=== PATIENT | female | born 1970 | race Caucasian/White ===

== ENCOUNTER 2018-08-27 04:08 | Inpatient (IN) ==
--- NOTE | 2018-08-22 17:53 | EKG Report ---
Test Performed on : 08/22/2018 5:41:44 PM Test Reason : PAT Blood Pressure : / mmHG Vent. Rate : 112 BPM Atrial Rate : 112 BPM P-R Int : 144 ms QRS Dur : 094 ms QT Int : 316 ms P-R-T Axes : 061 009 050 degrees QTc Int : 431 ms Sinus tachycardia. Low voltage QRS Possible Inferior infarct , age undetermined Abnormal ECG No previous ECGs available Confirmed by Deonte PANDYA, Tk ([id number]) on 08/23/2018 8:46:49 AM
[2018-08-22 18:08] LABS: BASO# 0.06 X1000 (0.0-0.2); BASO% 0.6 % (0.0-0.8); EOS# 0.49 X1000 (0.0-0.7); EOS% 5.2 % (0.0-10.0); HEMATOCRIT 32.8 % (37.0-47.0); HEMOGLOBIN 9.8 g/dL (12.0-16.0); IMM GRAN# 0.02 X1000 (0.0-0.04); IMM GRAN% 0.2 % (0.0-0.5); LYMPH% 30.7 % (20.5-51.1); MCH 25.1 PG (27-31); MCHC 29.9 g/dL (33-37); MCV 84.1 FL (81-99); MONO% 9.5 % (1.7-9.3); NEUT# 5.07 X1000 (1.4-6.5); NEUT% 53.8 % (42.2-75.2); PLT 290 X1000 (130-400); RDW 16.6 % (11.5-14.5); WBC 9.44 X1000 (4.8-10.8)
[2018-08-22 18:11] LABS: INR 0.96; PROTIME 13.6 Seconds (11.0-16.0)
[2018-08-22 18:12] LABS: PTT 30.1 Seconds (22.3-41.8)
[2018-08-22 18:42] LABS: CALCIUM 9.5 mg/dL (8.8-10.2)
[2018-08-22 22:02] LABS: URINE SOURCE CLEAN CATCH
[2018-08-22 23:04] LABS: HEMOGLOBIN A1C 5.7 % (4.8-6.0)
[2018-08-22 23:34] LABS: BILIRUBIN URINE NEGATIVE (NEGATIVE); BLOOD URINE TRACE (NEGATIVE); COLOR YELLOW; GLUCOSE URINE NEGATIVE (NEGATIVE); KETONE URINE NEGATIVE (NEGATIVE); LEUKOCYTES URINE SMALL (NEGATIVE); NITRITE URINE NEGATIVE (NEGATIVE); PROTEIN URINE 30 mg/dL (NEGATIVE); SP GRAVITY URINE 1.029; TURBIDITY URINE HAZY (CLEAR); UROBILINOGEN URINE 2 mg/dL (NORMAL)
[2018-08-22 23:35] LABS: UR EPITHELIAL CELLS >10 /HPF (<10); URINE BACTERIA 2+ /HPF
[2018-08-27] MEDS ORDERED: COLACE ONE (05:59)
[2018-08-27] MEDS ORDERED: PEPCID ONE (05:59)
[2018-08-27] MEDS ORDERED: REGLAN ONE (05:59)
[2018-08-27] MEDS ORDERED: LYRICA ONE (06:00)
[2018-08-27] MEDS ORDERED: LR 1,000 ML ONE (06:00)
[2018-08-27] MEDS ORDERED: CELEBREX ONE (06:00)
[2018-08-27] MEDS ORDERED: KEFZOL 2 GM/D5W 2 GM/50 ML IVPB ONE (06:14)
[2018-08-27] MEDS ORDERED: DIPRIVAN 1% ONE (07:00)
[2018-08-27] MEDS ORDERED: XYLOCAINE-MPF 2% ONE (07:01)
[2018-08-27] MEDS ORDERED: SODIUM CHLORIDE 0.9% ONE (07:03)
[2018-08-27] MEDS ORDERED: DURAMORPH ONE (07:03)
[2018-08-27] MEDS ORDERED: QUELICIN (DOSE) ONE (07:03)
[2018-08-27] MEDS ORDERED: NORCURON ONE (07:03)
[2018-08-27] MEDS ORDERED: SODIUM CHLORIDE 0.9% 10 ML ONE ×2 (07:03→09:24)
[2018-08-27] MEDS ORDERED: CYKLOKAPRON 1,000 MG/NS 1,000 MG/100 ML IVPB ONE (07:03)
[2018-08-27] MEDS ORDERED: TORADOL ONE ×3 (07:03→10:37)
[2018-08-27] MEDS ORDERED: MARCAINE 0.25% PF ONE (07:03)
[2018-08-27] MEDS ORDERED: EXPAREL 1.3% ONE (07:04)
[2018-08-27] MEDS ORDERED: NEOSPORIN G.U. IRRIGANT ONE (07:04)
[2018-08-27] MEDS ORDERED: ZOFRAN ONE (07:27)
[2018-08-27] MEDS ORDERED: DECADRON ONE (07:27)
[2018-08-27] MEDS ORDERED: FENTANYL ONE (07:28)
[2018-08-27] MEDS ORDERED: OFIRMEV 1000 MG/ISOTONIC SOLN 1,000 MG/100 ML BOTTLE ONE (07:37)
[2018-08-27] MEDS ORDERED: ROBINUL ONE (09:15)
[2018-08-27] MEDS ORDERED: NEOSTIGMINE ONE (09:15)
[2018-08-27] MEDS ORDERED: NEO-SYNEPHRINE ONE (09:24)
[2018-08-27 09:52] LABS: URINE SOURCE CATH
[2018-08-27 09:58] LABS: BILIRUBIN URINE NEGATIVE (NEGATIVE); BLOOD URINE NEGATIVE (NEGATIVE); COLOR YELLOW; GLUCOSE URINE NEGATIVE (NEGATIVE); KETONE URINE NEGATIVE (NEGATIVE); LEUKOCYTES URINE NEGATIVE (NEGATIVE); NITRITE URINE NEGATIVE (NEGATIVE); PH URINE 5.5; PROTEIN URINE NEGATIVE (NEGATIVE); SP GRAVITY URINE 1.001; TURBIDITY URINE CLEAR (CLEAR); UR EPITHELIAL CELLS <10 /HPF (<10); URINE BACTERIA NEGATIVE /HPF; URINE RBC <10 /HPF (<10); URINE WBC <10 /HPF (<10); UROBILINOGEN URINE NORMAL (NORMAL)
[2018-08-27] MEDS ORDERED: NS 1,000 ML ONE (10:11)
--- NOTE | 2018-08-27 10:24 | OPERATIVE NOTE ---
PROCEDURE DATE: 08/27/2018 PREOPERATIVE DIAGNOSIS: Left hip degenerative joint disease. POSTOPERATIVE DIAGNOSIS: Left hip degenerative joint disease. PROCEDURE PERFORMED: Left anterior total hip arthroplasty using a [facility], a size 11 high offset stem with a neutral neck length 36-mm head, a 56-mm hemispherical shell with two 6.5 cancellous screws of 40 mm superiorly and 25 mm posterior superiorly and a 36-mm inside diameter neutral acetabular liner. ANESTHESIA: Spinal. SURGEON: Stanley Porter MD. SALES REPRESENTATIVE PUBLICATIONS: Tiara Arevalo PA-C. COMPLICATIONS: None. BLOOD LOSS: Minimal. DESCRIPTION OF OPERATION: The patient was brought to the operative suite and placed in supine position. After successful administration of spinal anesthesia, the patient was placed on the OSI table and the left hip was prepped and draped in the usual sterile fashion. A longitudinal incision was made beginning 3 cm distal and 3 cm lateral to the anterior superior iliac spine, extending distally and slightly laterally 8 cm, dissected sharply through the skin and subcutaneous tissue down to the tensor fascia. Tensor fascia was incised and dissected bluntly down to deep tensor fascia. Deep tensor fascia was incised and the circumflex vessels were electrocauterized exposing the anterior capsule. A T-capsulotomy was performed exposing the femoral neck. Femoral neck cut was removed with the oscillating saw. The femoral head was removed with the power corkscrew. The labrum was resected. The acetabulum was serially reamed to a 56 to accept a 56 cup. The 56 cup was then driven into place in the proper manner in inclination anteversion. Once it was verified to be in good position, two 6.5 cancellous screws of 40 mm superiorly and 25 mm posterior superiorly and then the 36-mm inside diameter neutral liner was locked onto the shell. Attention was then directed to the femur. It was externally rotated, extended, adducted, and elevated out of the wound with the hook on the OSI bed. The lateral neck was rongeured. The canal was serially broached to a size 11. A size 11 high offset neutral neck length 36-mm head was trialed and found be excellent fit and fill of the stem, stability of the hip, offset and leg length. The trial was removed. The definitive stem was seated onto the femur and then the ceramic head was seated onto the Torres taper and the hip was again reduced. It was again found to be in excellent position. The hip was copiously infiltrated with Exparel, including the posterior capsule, anterior capsule, anterior musculature, and subcutaneous tissue. The hip was copiously irrigated with normal saline containing irrigant and Vashe irrigation. A drain was placed deep to the tensor fascia and buried around the stem neck. The anterior capsule was repaired with 0 V-Loc suture. The tensor fascia was closed with 0 V-Loc suture. Skin edge was approximated with 2-0 Vicryl, skin was closed with 4-0 Monocryl and a Prineo dressing. A sterile dressing was applied. The patient tolerated the procedure well without complication. At the end of the procedure, all counts correct x2. The patient was transferred to the recovery room in stable condition. cc: Stanley Porter MD
--- NOTE | 2018-08-27 10:43 | Diag Imaging Result Doc PS360 ---
EXAM: HIP 1 VIEW LEFT HISTORY: post op TECHNIQUE: Left hip single view COMPARISON: None. FINDINGS: There has been orthopedic replacement of the left hip. There appears to be good positioning of acetabular component and femoral component. No fracture. Electronically signed by Kevin German 08/27/2018 10:40 AM
[2018-08-27] MEDS ORDERED: ZOFRAN IV PRN (11:30)
[2018-08-27] MEDS ORDERED: MORPHINE IV PRN ×3 (11:30)
[2018-08-27] MEDS ORDERED: MILK OF MAGNESIA PO PRN (11:30)
[2018-08-27] MEDS ORDERED: OXY IR PO PRN (11:45)
[2018-08-27] MEDS: OXY IR PO PRN ×2 (11:46→15:20)
[2018-08-27] MEDS: NS 1,000 ML IV SCH ×2 (11:47→22:48)
[2018-08-27] MEDS ORDERED: CYKLOKAPRON 1,000 MG in NS 100 ML IV ONE (13:45)
[2018-08-27] MEDS: KEFZOL 2 GM/D5W 2 GM/50 ML IVPB IV SCH ×2 (15:18→22:47)
[2018-08-27] MEDS: ULTRAM PO SCH ×2 (15:19→22:47)
[2018-08-27] MEDS: TYLENOL PO SCH ×2 (15:19→22:48)
[2018-08-27] MEDS ORDERED: VENTOLIN HFA INH PRN (15:39)
[2018-08-27] MEDS ORDERED: ROBAXIN PO PRN (15:39)
[2018-08-27] MEDS ORDERED: KLONOPIN PO PRN (15:39)
[2018-08-27] MEDS: WELLBUTRIN SR PO SCH (22:46)
[2018-08-27] MEDS: CELEBREX PO SCH (22:46)
[2018-08-27] MEDS: NEURONTIN PO SCH (22:47)
[2018-08-27] MEDS: PERIDEX MT SCH (22:47)
[2018-08-27] MEDS: COLACE PO SCH (22:47)
[2018-08-28] MEDS: TYLENOL PO SCH ×4 (03:50→20:57)
[2018-08-28] MEDS: ULTRAM PO SCH ×4 (03:50→20:56)
[2018-08-28] MEDS: NS 1,000 ML IV SCH ×2 (05:43→17:43)
[2018-08-28] MEDS ORDERED: XARELTO PO SCH (06:00)
[2018-08-28 06:28] LABS: AGAP 9; BUN 14 mg/dL (8-22); CALCIUM 8.1 mg/dL (8.8-10.2); CHLORIDE 109 mmol/L (98-107); COSMO 283; CREATININE 0.8 mg/dL (0.5-0.9); ESTIMATED GFR > 60; GLUCOSE 125 mg/dL (70-104); POTASSIUM 4.5 mmol/L (3.5-5.1); SODIUM 141 mmol/L (136-145); TCO2 23 mmol/L (25-35)
[2018-08-28 06:48] LABS: HEMOGLOBIN 6.3 g/dL (12.0-16.0)
[2018-08-28] MEDS: OXY IR PO PRN (07:30)
--- NOTE | 2018-08-28 07:51 | PROGRESS NOTE ---
DATE: 08/28/2018 SUBJECTIVE: Tonya Salas is a 48-year-old female, who had a left total hip arthroplasty anterior yesterday. She has no complaints this morning. OBJECTIVE: General: She is a well-developed, well-nourished female. She is alert and cooperative with exam. Extremities: Her wound is clean, dry, intact. Her leg is neurovascularly intact. Her calf is soft. She has no sign of deep venous thrombosis. Vital signs: Stable. She is afebrile. LABS: However, her hemoglobin is 6.3 and hematocrit is 21. ASSESSMENT: Left total hip arthroplasty with acute blood loss anemia on chronic anemia. PLAN: Due to her low hematocrit, we are going to transfuse her today. She should still hopefully be out of work with therapy, although they oftentimes will not work with her when she is on blood, so we will just see how she progresses, but we will hopefully be able to discharge her tomorrow. We will convert her to a full admission today. cc: Stanley Porter MD
[2018-08-28] MEDS ORDERED: DECADRON IV ONE (09:00)
[2018-08-28] MEDS ORDERED: NS 500 ML IV SCH (10:00)
[2018-08-28] MEDS: SYNTHROID PO SCH (11:27)
[2018-08-28] MEDS: LEXAPRO PO SCH (11:27)
[2018-08-28] MEDS: NEURONTIN PO SCH ×2 (11:27→20:57)
[2018-08-28] MEDS: COLACE PO SCH ×2 (11:27→20:56)
[2018-08-28] MEDS: WELLBUTRIN SR PO SCH ×2 (11:27→20:57)
[2018-08-28] MEDS: CELEBREX PO SCH ×2 (11:27→20:57)
[2018-08-28] MEDS: PRILOSEC PO SCH (11:27)
[2018-08-28] MEDS: PERIDEX MT SCH ×2 (11:27→20:57)
[2018-08-28] MEDS: XARELTO PO SCH (11:28)
[2018-08-28] MEDS: DEXTROAMP-AMPHET ER 30 MG CAP PO SCH (11:29)
[2018-08-29] MEDS: TYLENOL PO SCH ×2 (03:15→08:47)
[2018-08-29] MEDS: ULTRAM PO SCH ×2 (03:15→08:46)
[2018-08-29 06:22] LABS: HEMATOCRIT 27.1 % (37.0-47.0); HEMOGLOBIN 8.4 g/dL (12.0-16.0)
[2018-08-29] MEDS: OXY IR PO PRN (07:49)
[2018-08-29 08:01] VITALS: BP 121/78
[2018-08-29] MEDS: NS 1,000 ML IV SCH (08:41)
[2018-08-29] MEDS: PERIDEX MT SCH (08:44)
[2018-08-29] MEDS: NEURONTIN PO SCH (08:44)
[2018-08-29] MEDS: XARELTO PO SCH (08:44)
[2018-08-29] MEDS: LEXAPRO PO SCH (08:45)
[2018-08-29] MEDS: COLACE PO SCH (08:45)
[2018-08-29] MEDS: PRILOSEC PO SCH (08:45)
[2018-08-29] MEDS: SYNTHROID PO SCH (08:46)
[2018-08-29] MEDS: CELEBREX PO SCH (08:46)
[2018-08-29] MEDS: WELLBUTRIN SR PO SCH (08:47)
[2018-08-29] MEDS: DEXTROAMP-AMPHET ER 30 MG CAP PO SCH (08:49)
--- NOTE | 2018-08-29 12:32 | DISCHARGE SUMMARY ---
ADMISSION DATE: 08/27/2018 DISCHARGE DATE: 08/29/2018 DISCHARGE DIAGNOSIS: 1. Left hip degenerative joint disease, status post left total hip arthroplasty. 2. Acute blood loss anemia treated with transfusion. DISCHARGE MEDICATION: See the discharge medication list. DISPOSITION: The patient discharged home with home health physical therapy and instructed to return for any signs of infection, deep venous thrombosis. Instructed to return to see Dr. Porter next . HOSPITAL COURSE: On the day of admission patient underwent a left anterior total hip arthroplasty. Her postoperative course was unremarkable except for acute blood loss anemia treated with transfusion. At discharge, she is afebrile, tolerating a regular diet, ambulating well with physical therapy. Her wound is clean, dry, intact without sign of infection. Her hemoglobin is 8.4, hematocrit is 27.1. She is discharged home in stable condition with instructions to follow up as described above. cc: Stanley Porter MD [facility]
== END 2018-08-29 11:26 | disposition home health service (06) | DRG 470 ==
LOC: SURHOLD 04:08 → 4N 08:46
PROVIDERS: ADMIT Orthopaedic Surgery; ATTEND Orthopaedic Surgery
CPT/HCPCS: 36430; 73500; 73501; 76000; 80048; 81001; 82040; 83036; 85014; 85018; 85025; 85610; 85730; 86850; 86900; 86901; 86920; 88304; 88311; 93005; 93010; 94760; 94799; 97116; 97162; 97165; 97530; 97535; A9270; C9290; J0131; J0330; J0690; J1100; J1885; J2274; J2275; J2370; J2405; J3010; J7030; J7040; J7120; P9016; Q9974; S0020